=== PATIENT | female | born 2000 | race Two or more races ===

== ENCOUNTER 2018-06-01 18:40 | Emergency (ER) | payer MEDICAID, OTHER ==
[~2018-06-01] VITALS: Ht 165.1 cm; Wt 108.9 kg
[2018-06-01 18:54] VITALS: BP 138/67
== END 2018-06-01 22:00 | disposition left against medical advice (07) ==
LOC: ER 18:44
DX: M54.5 Low back pain (principal); Z53.21 Procedure and treatment not carried out due to patient leaving prior to being seen by health care provider

== ENCOUNTER 2018-06-18 17:27 | Emergency (ER) | payer MEDICAID ==
[~2018-06-18] VITALS: Ht 165.1 cm; Wt 61.2 kg
[2018-06-18 18:08] VITALS: BP 115/80
== END 2018-06-18 20:09 | disposition left against medical advice (07) ==
LOC: ER 17:29
DX: J45.909 Unspecified asthma, uncomplicated (principal); Z53.21 Procedure and treatment not carried out due to patient leaving prior to being seen by health care provider
CPT/HCPCS: 71046

== ENCOUNTER 2021-09-29 14:10 | Emergency (ER) | payer MEDICAID ==
[~2021-09-29] VITALS: Ht 165.1 cm; Wt 117.9 kg
[2021-09-29 15:09] LABS: Urine Bacteria NONE SEEN /hpf (None Seen); Urine Blood 3+ /uL (Negative); Urine Mucus FEW (None Seen); Urine Specific Gravity 1.024 (1.001-1.035); Urine WBC 30 /hpf (0 - 5)
[2021-09-29 15:46] LABS: Albumin 3.4 g/dL (3.4-5.0); Calcium 8.8 mg/dL (8.5-10.1); Potassium 3.8 mmol/L (3.5-5.1)
[2021-09-29 15:50] LABS: Bilirubin, Total 0.3 mg/dL (0.2-1.0); Total Protein 7.7 g/dL (6.4-8.2)
[2021-09-29 17:17] VITALS: BP 107/66
== END 2021-09-29 17:42 | disposition home or self-care (01) ==
LOC: ER 14:10
DX: R10.31 Right lower quadrant pain (principal); N93.9 Abnormal uterine and vaginal bleeding, unspecified
CPT/HCPCS: 36415; 80053; 81001; 84702